=== PATIENT | male | born 1965 ===

== ENCOUNTER 2022-08-18 07:20 | Day surgery (SDC) | payer OTHER ==
[~2022-08-18] VITALS: Ht 175.3 cm; Wt 97.0 kg
[~2022-08-18 07:20] MED LIST: IMITREX50 MG PO; NORCO 325 MG-51 TAB PO; QUALITY CHOICE1 T22 PO; ZESTRIL 10MG10 MG PO
[2022-08-18 07:45] VITALS: BP 140/93; PULSE 80; TEMP 98.3
[2022-08-18] MEDS ORDERED: NAPROSYN 2250 MG/TAB PO (08:16)
[2022-08-18 08:19] VITALS: BP 140/93; PULSE 80; TEMP 98.3
[2022-08-18 09:15] VITALS: BP 138/87; PULSE 86; TEMP 98.3
--- NOTE | 2022-08-18 09:15 | NUR ---
0915 PATIENT RETURNS TO ROOM 4 VIA CART. PATIENT IS ALERT AND ORIENTED. PATIENT IS IN ROOM. PATIENT AMBULATES BACK TO RECLINER WITH THE ASSISTANCE OF 2 NURSES. RESPIRATIONS EVEN AND UNLABORED. VITALSIGNS OBTAINED. PATIENT REQUESTED COFFEE. NO DIFFICULTIES SWALLOWING. 0915 DOCTOR IN TO SPEAK WITH PATIENT. 0940 DISCONTINUED IV FROM RIGHT FOREARM WITH NO DIFFICULTIES. 0945 THIS NURSE REVIEWED DUSCHARGE INTRUCTIONS WITH PATIENT AND PATIENT . BOTH VERBALIZED UNDERSTANDING. 0950 PATIENT DISCHARGES FROM UNIT VIA WHEELCHAIR IN STABLE CONDITION.
[2022-08-18 09:25] VITALS: BP 116/73; PULSE 76
[2022-08-18 09:45] VITALS: BP 118/105; PULSE 74
== END 2022-08-18 09:50 | disposition home or self-care (01) ==
LOC: SDCO 07:20
DX: K64.0 First degree hemorrhoids (principal); K64.4 Residual hemorrhoidal skin tags; K62.5 Hemorrhage of anus and rectum; R19.4 Change in bowel habit
CPT/HCPCS: J2704